=== PATIENT | male | born 1970 | race Caucasian/White ===

== ENCOUNTER 2016-04-28 09:37 | Emergency (ER) | payer BC ==
[~2016-04-28] VITALS: Ht 185.4 cm; Wt 170.0 kg
[~2016-04-28 09:37] MED LIST: BUSP5 PO; HYDR-2768 PO; LOSA100T PO
[2016-04-28 09:39] VITALS: BP 182/99; PULSE 89; RESP 17; TEMP 98.1; O2SAT 97
[2016-04-28 10:35] LABS: AUTOMATED NEUTROPHIL # 5.2 TH/MM3 (1.8-7.7); BASOPHIL % 0.6 % (0.0-2.0); EOSINOPHIL # 0.2 TH/MM3 (0-0.4); HEMO FLAGS DIFF FINAL; LYMPH % 23.3 % (9.0-44.0); LYMPHOCYTE # 1.8 TH/MM3 (1.0-4.8); MEAN CELL VOLUME 87.6 FL (80.0-100.0); MEAN CORPUSCULAR HEMOGLOBIN 29.1 PG (27.0-34.0); MEAN CORPUSCULAR HGB CONC 33.2 % (32.0-36.0); MONO % 7.4 % (0.0-8.0); NEUT % 66.7 % (16.0-70.0); PLATELET COUNT 219 TH/MM3 (150-450); RED BLOOD COUNT 5.02 MIL/MM3 (4.50-5.90); RED CELL DISTRIBUTION WIDTH 13.2 % (11.6-17.2); WHITE BLOOD COUNT 7.8 TH/MM3 (4.0-11.0)
[2016-04-28 10:59] LABS: ANION GAP 8 MEQ/L (5-15); AST (GOT) 17 U/L (15-37); BICARBONATE 26.4 MEQ/L (21.0-32.0); BLOOD UREA NITROGEN 17 MG/DL (7-18); CHLORIDE 105 MEQ/L (98-107); GLOMERULAR FILTRATION RATE 93 ML/MIN (>89); POTASSIUM 3.8 MEQ/L (3.5-5.1); SODIUM (NA) 139 MEQ/L (136-145)
[2016-04-28 11:03] LABS: ALKALINE PHOSPHATASE 65 U/L (45-117); ALT (GPT) 41 U/L (12-78); TOTAL BILIRUBIN ADULT 0.5 MG/DL (0.2-1.0)
[2016-04-28] MEDS ORDERED: LOSA100T PO (11:49)
[2016-04-28] MEDS ORDERED: HYDR25TA5 PO (11:49)
[2016-04-28] MEDS ORDERED: BUSP5TAB PO (11:49)
[2016-04-28] MEDS ORDERED: MECLIZINE HCL 25 MG TAB PO ONE (12:00)
--- NOTE | 2016-04-28 12:20 | PD ---
HPI Chief Complaint: Syncope/Near-Syncope Time Seen by Provider: 12:16 Travel History International Travel<30 days: No Contact w/Intl Traveler<30days: No Traveled to known affect area: No History of Present Illness HPI 45-year-old male that presents to the ED for evaluation of dizziness. Patient reports that since yesterday around 11:00 he's been feeling dizzy. Per patient he was in his kitchen getting some water and he felt dizzy as if he was given a passout. Per patient he was severe at that time. Per patient he was able to lay down and sit down and he did seem to improve his symptoms. Per patient he states that it feels like his been out of the lightheaded as well as the room spinning but he denies any actual chest pain or shortness of breath. He denies any actual syncopal episode. He denies any bleeding. He states that has a history of hypertension and obesity but no diabetes. Per patient he is very active physically as he is trying to lose weight. He denies any recent sudden lost weight. He states that he has no chest pain or palpitations. No history of heart disease. No allergies to medication. He did took some Dramamine to help with the symptoms and he did seem to help. Per patient she got concerned today because he started having more episodes only when he stands up. Otherwise he is doing okay. He has no allergies to medication. Per patient his had similar presentation a week ago and she got better. States that about 7 years ago he himself was diagnosed with vertigo but that went away. PFSH Past Medical History Hx Anticoagulant Therapy: No Anxiety: Yes Cardiovascular Problems: No High Cholesterol: Yes Chemotherapy: No Cerebrovascular Accident: No Diabetes: Yes (boderline) Patient Takes Glucophage: No Hypertension: Yes Respiratory: No Past Surgical History Surgical History: No Previous Surgery Social History Alcohol Use: Yes (OCCASIONALLY) Tobacco Use: No Substance Use: No Allergies-Medications (Allergen,Severity, Reaction): Coded Allergies: No Known Allergies (Unverified , 01/31/15) Reported Meds & Prescriptions Reported Meds & Active Scripts Active Meclizine (Meclizine HCl) 25 Mg Tab 25 Mg PO TID PRN Reported Buspirone (Buspirone HCl) 5 Mg Tab 5 Mg PO BID Hydrochlorothiazide 25 Mg Tab 25 Mg PO DAILY Losartan (Losartan Potassium) 100 Mg Tab 100 Mg PO DAILY Review of Systems Except as stated in HPI: all other systems reviewed are Neg Physical Exam Narrative GENERAL: SKIN: Warm and dry. HEAD: Atraumatic. Normocephalic. EYES: Pupils equal and round 4 mm reactive to light and accommodation. No scleral icterus. No injection or drainage. ENT: No nasal bleeding or discharge. Mucous membranes pink and moist. Tongue is midline. No uvula deviation. TMs are clear with no sign of infection or perforation. No mastoid tenderness. NECK: Trachea midline. No JVD. CARDIOVASCULAR: Regular rate and rhythm. No murmurs, S3, S4. RESPIRATORY: No accessory muscle use. Clear to auscultation. Breath sounds equal bilaterally. GASTROINTESTINAL: Abdomen soft, non-tender, nondistended. Hepatic and splenic margins not palpable. MUSCULOSKELETAL: Extremities without clubbing, cyanosis, or edema. No obvious deformities. Full range of motion of the upper and lower extremities bilaterally. 2+ pulses bilaterally. NEUROLOGICAL: Awake and alert. No obvious cranial nerve deficits. Motor grossly within normal limits. Five out of 5 muscle strength in the arms and legs. Normal speech. PSYCHIATRIC: Appropriate mood and affect; insight and judgment normal. Data Data Last Documented VS Vital Signs Date Time Temp Pulse Resp B/P Pulse Ox O2 Delivery O2 Flow Rate FiO2 04/28/16 12:43 79 16 131/63 93 18 138/67 84 18 143/70 04/28/16 09:39 98.1 97 Orders Electrocardiogram (04/28/16 09:40) Complete Blood Count With Diff (04/28/16 09:40) Comprehensive Metabolic Panel (04/28/16 09:40) Troponin I (04/28/16 11:46) Chest, Single Ap (04/28/16 11:46) Ct Brain W/O Iv Contrast(Rout) (04/28/16 11:46) Iv Access Insert/Monitor (04/28/16 11:46) Ecg Monitoring (04/28/16 11:46) Oximetry (04/28/16 11:46) Orthostatic Vital Signs (04/28/16 11:46) Meclizine (Antivert) (04/28/16 12:00) Labs Laboratory Tests Test 04/28/16 04/28/16 10:10 12:05 White Blood Count 7.8 TH/MM3 Red Blood Count 5.02 MIL/MM3 Hemoglobin 14.6 GM/DL Hematocrit 44.0 % Mean Corpuscular Volume 87.6 FL Mean Corpuscular Hemoglobin 29.1 PG Mean Corpuscular Hemoglobin 33.2 % Concent Red Cell Distribution Width 13.2 % Platelet Count 219 TH/MM3 Mean Platelet Volume 9.7 FL Neutrophils (%) (Auto) 66.7 % Lymphocytes (%) (Auto) 23.3 % Monocytes (%) (Auto) 7.4 % Eosinophils (%) (Auto) 2.0 % Basophils (%) (Auto) 0.6 % Neutrophils # (Auto) 5.2 TH/MM3 Lymphocytes # (Auto) 1.8 TH/MM3 Monocytes # (Auto) 0.6 TH/MM3 Eosinophils # (Auto) 0.2 TH/MM3 Basophils # (Auto) 0.0 TH/MM3 CBC Comment DIFF FINAL Differential Comment Sodium Level 139 MEQ/L Potassium Level 3.8 MEQ/L Chloride Level 105 MEQ/L Carbon Dioxide Level 26.4 MEQ/L Anion Gap 8 MEQ/L Blood Urea Nitrogen 17 MG/DL Creatinine 0.88 MG/DL Estimat Glomerular Filtration 93 ML/MIN Rate Random Glucose 106 MG/DL Calcium Level 8.7 MG/DL Total Bilirubin 0.5 MG/DL Aspartate Amino Transf 17 U/L (AST/SGOT) Alanine Aminotransferase 41 U/L (ALT/SGPT) Alkaline Phosphatase 65 U/L Total Protein 7.7 GM/DL Albumin 3.8 GM/DL Troponin I LESS THAN 0.02 NG/ML MDM Medical Decision Making Medical Screen Exam Complete: Yes Emergency Medical Condition: Yes Medical Record Reviewed: Yes Interpretation(s) CBC & BMP Diagram 04/28/16 10:10 LFTS WNL troponin negative EKG shows sinus rhythm with no sign of acute ischemia or arrhythmia. RBBB noted. Read by me and attending. Last Impressions Head CT 04/28/16 1146 Signed Impressions: Service Date/Time: Thursday, April 28, 2016 12:12 - CONCLUSION: No acute disease. Pepe Anderson MD FACR Checks x-rays show no sign of acute disease. Differential Diagnosis Syncope versus presyncope versus vertigo versus dizziness versus orthostatic hypotension versus normal exam versus otitis media versus otitis externa Narrative Course 45-year-old male that presents to the ED for evaluation of dizziness. Patient was properly examined and was found to have signs and symptoms consistent appears to be likely vertigo from symptom description. Labs and imaging will be done secondary to his age to rule out any sign of acute cardiac disease as well as brain bleed or other causes of severe illness. Patient is agreeable to this plan. Labs and imaging showed no sign of acute disease. Case was discussed in my attending Dr. Sabillon who agrees with plan. From history and physical this appears to be positional vertigo. Only when patient stands up he has to symptoms. Orthostatics are negative. EKG and labs are essentially reassuring at this time. I do not see any any sign of acute cardiac or CVA. He is neurovascularly intact. My recommendation at this time is to try meclizine. Patient was told as to things to look for in case of emergency and to come back. He agrees and understands. Patient was told that if symptoms do not improve in the next 2 days he should get rechecked. See ED worsening symptoms. Follow with PCP. Diagnosis Primary Impression: Vertigo Patient Instructions: General Instructions Departure Forms: Tests/Procedures, Work Release Enter return to work date: May 01, 2016 Additional Instructions: Take medication as prescribed. Follow with PCP. Rest as needed. See ED worsening symptoms or no improvement at all in the next 48 hours. Med/Other Pt SpecificInfo: Prescription(s) given Scripts Meclizine 25 Mg Tab25 Mg PO TID PRN (VERTIGO) #20 TAB Ref 0 Prov:Bria Sabillon MD 04/28/16 Disposition: 01 DISCHARGE HOME Condition: Stable Justin Prince Apr 28, 2016 12:20
--- NOTE | 2016-04-28 12:36 | RADRPT ---
EXAM DATE/TIME: 04/28/2016 12:12 [facility] COMPARISON: No previous studies available for comparison. INDICATIONS : Near syncopal episode last night. Complains of dizziness today. RADIATION DOSE: 47.01 CTDIvol (mGy) MEDICAL HISTORY : Hypertension. SURGICAL HISTORY : None. ENCOUNTER: Initial ACUITY: 1 day PAIN SCALE: 0/10 LOCATION: cranial TECHNIQUE: Multiple contiguous axial images were obtained of the head. Using automated exposure control and adj ustment of the mA and/or kV according to patient size, radiation dose was kept as low as reasonably a chievable to obtain optimal diagnostic quality images. FINDINGS: CEREBRUM: The ventricles are normal for age. No evidence of midline shift, mass lesion, hemorrhage or acute in farction. No extra-axial fluid collections are seen. POSTERIOR FOSSA: The cerebellum and brainstem are intact. The 4th ventricle is midline. The cerebellopontine angle i s unremarkable. EXTRACRANIAL: The visualized portion of the orbits is intact. SKULL: The calvaria is intact. No evidence of skull fracture. CONCLUSION: No acute disease. Pepe Anderson MD FACR on April 28, 2016 at 12:34 Board Certified Radiologist. This report was verified electronically.
[2016-04-28 12:43] VITALS: BP_SYST 131; BP_SYST 138; BP_SYST 143; BP_DIAS 63; BP_DIAS 67; BP_DIAS 70; RESP 16; RESP 18
[2016-04-28] MEDS ORDERED: MECL-62 PO (13:14)
--- NOTE | 2016-04-28 13:25 | RADRPT ---
EXAM DATE/TIME: 04/28/2016 12:37 [facility] COMPARISON: No previous studies available for comparison. INDICATIONS : Syncope. nausea and dizziness. MEDICAL HISTORY : None. SURGICAL HISTORY : None. ENCOUNTER: Initial ACUITY: 2 days PAIN SCORE: 0/10 LOCATION: Bilateral chest FINDINGS: A single view of the chest demonstrates the lungs to be symmetrically aerated without evidence of mas s, infiltrate or effusion. The cardiomediastinal contours are unremarkable. Osseous structures are intact with some degenerative spurring of the dorsal spine. CONCLUSION: No acute cardiopulmonary process. Дмитрий Davenport MD on April 28, 2016 at 13:23 Board Certified Radiologist. This report was verified electronically.
--- NOTE | 2016-04-28 22:34 | EKG ---
Date Performed: 04/28/2016 Time Performed: 10:04:23 PTAGE: 45 years EKG: Sinus rhythm RIGHT BUNDLE BRANCH BLOCK ABNORMAL ECG NO PREVIOUS TRACING DOCTOR: Kory Aquino Interpretating Date/Time 04/28/2016 22:33:27
== END 2016-04-28 13:49 | disposition home or self-care (01) ==
LOC: NEPC 09:37
DX: R42 Dizziness and giddiness (principal); E78.00 Pure hypercholesterolemia, unspecified; I10 Essential (primary) hypertension
CPT/HCPCS: 70450; 71010; 80053; 84484; 85025; 93005

== ENCOUNTER 2017-09-28 13:38 | Observation (INO) | payer BC ==
[~2017-09-28] VITALS: Ht 182.9 cm; Wt 156.0 kg
[~2017-09-28 13:38] MED LIST changes: -BUSP5 PO; +BUSP5TAB PO; -HYDR-2768 PO; +HYDR25TA5 PO; +MECL-62 PO
[2017-09-28 13:44] VITALS: BP 171/86; PULSE 108; RESP 16; TEMP 97.4; O2SAT 96
[2017-09-28 14:25] LABS: AUTOMATED NEUTROPHIL # 4.8 TH/MM3 (1.8-7.7); BASOPHIL % 0.5 % (0.0-2.0); EOSINOPHIL # 0.1 TH/MM3 (0-0.4); HEMATOCRIT 45.4 % (39.0-51.0); HEMOGLOBIN 15.8 GM/DL (13.0-17.0); LYMPHOCYTE # 1.2 TH/MM3 (1.0-4.8); MEAN CELL VOLUME 86.3 FL (80.0-100.0); MEAN CORPUSCULAR HEMOGLOBIN 29.9 PG (27.0-34.0); MEAN CORPUSCULAR HGB CONC 34.7 % (32.0-36.0); MEAN PLATELET VOLUME 9.4 FL (7.0-11.0); MONO % 8.7 % (0.0-8.0); MONOCYTE # 0.6 TH/MM3 (0-0.9); NEUT % 71.8 % (16.0-70.0); PLATELET COUNT 221 TH/MM3 (150-450); RED BLOOD COUNT 5.26 MIL/MM3 (4.50-5.90); RED CELL DISTRIBUTION WIDTH 13.1 % (11.6-17.2); WHITE BLOOD COUNT 6.7 TH/MM3 (4.0-11.0)
--- NOTE | 2017-09-28 14:38 | RADRPT ---
EXAM DATE: 09/28/2017 2:22 PM EDT AGE/SEX: 47 years / Male INDICATIONS: Left arm pain, abnormal ekg CLINICAL DATA: This is the patient's initial encounter. Patient reports that signs and symptoms have been present for 2 days and indicates a pain score of 5/10. MEDICAL/SURGICAL HISTORY: None. None. COMPARISON: No prior exams available for comparison. FINDINGS: PA and lateral views of the chest demonstrate the lungs to be symmetrically aerated without evidence of mass, infiltrate or effusion. The cardiomediastinal contours are unremarkable. Osseous structures are intact. CONCLUSION: No acute cardiopulmonary process. Electronically signed by: Les Del Cid MD 09/28/2017 2:37 PM EDT
[2017-09-28 14:44] LABS: BICARBONATE 25.3 MEQ/L (21.0-32.0); BLOOD UREA NITROGEN 19 MG/DL (7-18); CALCIUM 9.5 MG/DL (8.5-10.1); CHLORIDE 107 MEQ/L (98-107); CREATININE 1.01 MG/DL (0.60-1.30); GLOMERULAR FILTRATION RATE 79 ML/MIN (>89); GLUCOSE,RANDOM 104 MG/DL (74-106); SODIUM (NA) 140 MEQ/L (136-145)
[2017-09-28 14:48] LABS: TROPONIN I LESS THAN 0.02 NG/ML (0.02-0.05)
[2017-09-28] MEDS ORDERED: NALT1TAB3 PO (14:55)
--- NOTE | 2017-09-28 15:04 | PD ---
HPI Chief Complaint: Chest Pain Time Seen by Provider: 14:56 Travel History International Travel<30 days: No Contact w/Intl Traveler<30days: No Traveled to known affect area: No History of Present Illness HPI 47-year-old male with history of hypertension, diabetes, sleep apnea, presents emergency department for evaluation. Patient states 3 days [place] When he got up he developed a pain under his left scapula. This resolved on its own. Patient had no preceding injury. There is no chest tightness or shortness of breath associated with it. The next day, the patient developed a left upper extremity tingling. He states this persisted nearly throughout the day although it did wax and wane. Yesterday he had no symptoms. Today however while at work he had 2 episodes of left upper extremity numbness. There was no pain associated with it. Patient denies any shortness of breath, nausea, or lightheaded sensation. Patient has no significant cardiac history. He went to the urgent care. They did an EKG there and advised to come to the emergency department. Patient is having no symptoms at this time. PFSH Past Medical History Hx Anticoagulant Therapy: No Anxiety: Yes Cardiovascular Problems: No High Cholesterol: Yes Chemotherapy: No Cerebrovascular Accident: No Diabetes: Yes (boderline) Patient Takes Glucophage: No Hypertension: Yes Respiratory: No Tetanus Vaccination: Unknown Influenza Vaccination: Yes Past Surgical History Surgical History: No Previous Surgery Social History Alcohol Use: Yes (OCCASIONALLY) Tobacco Use: No Substance Use: No Allergies-Medications (Allergen,Severity, Reaction): Coded Allergies: No Known Allergies (Unverified Adverse Reaction, Unknown, 09/28/17) Reported Meds & Prescriptions Reported Meds & Active Scripts Active Reported Contrave ER 12 HR (Naltrexone HCl-Bupropion ER 12 HR) 8-90 Mg Tab 1 Tab PO TID Buspirone (Buspirone HCl) 5 Mg Tab 5 Mg PO DAILY Hydrochlorothiazide 25 Mg Tab 25 Mg PO DAILY Losartan (Losartan Potassium) 100 Mg Tab 100 Mg PO DAILY Review of Systems Except as stated in HPI: all other systems reviewed are Neg Physical Exam Narrative GENERAL: Obese male patient, appears nontoxic and without distress. SKIN: Focused skin assessment warm/dry. HEAD: Atraumatic. Normocephalic. EYES: Pupils equal and round. No scleral icterus. No injection or drainage. ENT: No nasal bleeding or discharge. Mucous membranes pink and moist. NECK: Trachea midline. No JVD. CARDIOVASCULAR: Regular rate and rhythm. No murmur appreciated. RESPIRATORY: No accessory muscle use. Diminished, likely due to girth to auscultation. Breath sounds equal bilaterally. GASTROINTESTINAL: Rotund, soft, nondistended. No rebound tenderness or guarding. Hepatic and splenic margins not palpable. MUSCULOSKELETAL: No obvious deformities. No clubbing. No cyanosis. No edema. NEUROLOGICAL: Awake and alert. No obvious cranial nerve deficits. Motor grossly within normal limits. Normal speech. PSYCHIATRIC: Appropriate mood and affect; insight and judgment normal. Data Data Last Documented VS Vital Signs Date Time Temp Pulse Resp B/P (MAP) Pulse Ox O2 Delivery O2 Flow Rate FiO2 09/28/17 15:17 (114) Room Air 09/28/17 15:17 96 09/28/17 13:44 97.4 108 16 Orders Orders Electrocardiogram (09/28/17 14:00) Complete Blood Count With Diff (09/28/17 14:00) Basic Metabolic Panel (Bmp) (09/28/17 14:00) Ckmb (Isoenzyme) Profile (09/28/17 14:00) Troponin I (09/28/17 14:00) Iv Access Insert/Monitor (09/28/17 14:00) Ecg Monitoring (09/28/17 14:00) Oxygen Administration (09/28/17 14:00) Oximetry (09/28/17 14:00) Chest, Pa & Lat (09/28/17 14:00) Lipase (09/28/17 15:15) Labs Laboratory Tests Test 09/28/17 14:00 White Blood Count 6.7 TH/MM3 Red Blood Count 5.26 MIL/MM3 Hemoglobin 15.8 GM/DL Hematocrit 45.4 % Mean Corpuscular Volume 86.3 FL Mean Corpuscular Hemoglobin 29.9 PG Mean Corpuscular Hemoglobin Concent 34.7 % Red Cell Distribution Width 13.1 % Platelet Count 221 TH/MM3 Mean Platelet Volume 9.4 FL Neutrophils (%) (Auto) 71.8 % Lymphocytes (%) (Auto) 18.0 % Monocytes (%) (Auto) 8.7 % Eosinophils (%) (Auto) 1.0 % Basophils (%) (Auto) 0.5 % Neutrophils # (Auto) 4.8 TH/MM3 Lymphocytes # (Auto) 1.2 TH/MM3 Monocytes # (Auto) 0.6 TH/MM3 Eosinophils # (Auto) 0.1 TH/MM3 Basophils # (Auto) 0.0 TH/MM3 CBC Comment DIFF FINAL Differential Comment Blood Urea Nitrogen 19 MG/DL Creatinine 1.01 MG/DL Random Glucose 104 MG/DL Calcium Level 9.5 MG/DL Sodium Level 140 MEQ/L Potassium Level 3.8 MEQ/L Chloride Level 107 MEQ/L Carbon Dioxide Level 25.3 MEQ/L Anion Gap 8 MEQ/L Estimat Glomerular Filtration Rate 79 ML/MIN Total Creatine Kinase 95 U/L Troponin I LESS THAN 0.02 NG/ML MDM Medical Decision Making Medical Screen Exam Complete: Yes Emergency Medical Condition: Yes Medical Record Reviewed: Yes Differential Diagnosis Atypical chest pain versus pleuritic pain versus costochondritis versus anxiety versus radiculopathy Narrative Course 47-year-old male presents emergency department for evaluation. Patient appears well and without distress. Patient symptoms have been intermittent for the last 3 days. They have included a left scapular pain and left upper extremity tingling. Patient is not currently having the symptoms. EKG was repeated here and reviewed by my attending physician. Chest pain workup is initiated. Laboratory Tests Test 09/28/17 14:00 White Blood Count 6.7 TH/MM3 Red Blood Count 5.26 MIL/MM3 Hemoglobin 15.8 GM/DL Hematocrit 45.4 % Mean Corpuscular Volume 86.3 FL Mean Corpuscular Hemoglobin 29.9 PG Mean Corpuscular Hemoglobin Concent 34.7 % Red Cell Distribution Width 13.1 % Platelet Count 221 TH/MM3 Mean Platelet Volume 9.4 FL Neutrophils (%) (Auto) 71.8 % Lymphocytes (%) (Auto) 18.0 % Monocytes (%) (Auto) 8.7 % Eosinophils (%) (Auto) 1.0 % Basophils (%) (Auto) 0.5 % Neutrophils # (Auto) 4.8 TH/MM3 Lymphocytes # (Auto) 1.2 TH/MM3 Monocytes # (Auto) 0.6 TH/MM3 Eosinophils # (Auto) 0.1 TH/MM3 Basophils # (Auto) 0.0 TH/MM3 CBC Comment DIFF FINAL Differential Comment Blood Urea Nitrogen 19 MG/DL Creatinine 1.01 MG/DL Random Glucose 104 MG/DL Calcium Level 9.5 MG/DL Sodium Level 140 MEQ/L Potassium Level 3.8 MEQ/L Chloride Level 107 MEQ/L Carbon Dioxide Level 25.3 MEQ/L Anion Gap 8 MEQ/L Estimat Glomerular Filtration Rate 79 ML/MIN Total Creatine Kinase 95 U/L Troponin I LESS THAN 0.02 NG/ML Last Impressions Chest X-Ray 09/28/17 1400 Signed Impressions: CONCLUSION: No acute cardiopulmonary process. Imaging studies and lab work are reviewed. They are all reassuring. I have reviewed them with the patient. Patient will be admitted to the chest pain center for serial troponins and observation. Plan is discussed with him. He is in agreement with this plan of care. Diagnosis Primary Impression: Atypical chest pain Admitting Information Admitting Physician Requests: Observation Condition: Stable Netta Freed Sep 28, 2017 15:04
[2017-09-28] MEDS ORDERED: NITROGLYCERIN 0.4 MG SL 25 TABS/BTL SL PRN (16:15)
[2017-09-28] MEDS ORDERED: ACETAMINOPHEN 500 MG CPLT PO PRN (16:15)
[2017-09-28] MEDS ORDERED: SODIUM CHLORIDE 0.9% FLUSH 10 ML FLUSH IV FLUSH PRN (16:15)
[2017-09-28] MEDS ORDERED: ALPRAZolam 0.5 MG TAB PO PRN (16:45)
--- NOTE | 2017-09-28 16:48 | HHI.HP ---
HPI Primary Care Physician Ayaz Sepulveda MD Chief Complaint Arm pain History of Present Illness 47-year-old male with history of hypertension and morbidly obese presents emergency room for further evaluation of left arm pain. Sunday while visiting the beach he fell asleep, upon awakening left shoulder scapula area extremely painful. Duration 2 hours. Sunday left upper arm experienced intermittent throbbing, duration 3 hours. pain-free. Sunday morning left arm pain returned. Went to urgent care. EKG completed. He was directed to the ER for further evaluation. Told he had a heart attack in the past. Denies ever having chest pain, tightness, or pressure. No associated symptoms of nausea, vomiting, dyspnea, or diaphoresis. No known coronary artery disease. He is extremely anxious about admission and possibility of having a heart attack. Left arm pain completely gone. Denies numbness or tingling of extremity. Pain not reproduced with palpation or movement. Review of Systems General: No fatigue, weakness, fever, chills, or recent illness. Has been his general state of health. Currently working on weight loss, lost 31 pounds. HEENT: No DE, no vision changes, no nasal congestion or drainage, no dysphasia CV: Never experienced chest pain or pressure. RESP: No SOB, cough, wheeze, or history of asthma GI: No nausea, vomiting, bowel changes, diarrhea, constipation, pain, distention , melena, blood in the stool. : No dysuria, urgency, frequency EXT: No lower leg edema, no paraesthesias MS: As stated above. No current discomfort. No change in ROM NEURO: No change in memory, dizziness, difficulty with balance, LOC, motor/ sensory deficits PSYCH: History of anxiety. no depression or suicidal ideation SKIN: No rashes, no concerning lesions Past Family Social History Allergies: Coded Allergies: No Known Allergies (Unverified Allergy, Unknown, 09/28/17) Past Medical History Hypertension Past Surgical History None Reported Medications Reported Meds & Active Scripts Active Reported Contrave ER 12 HR (Naltrexone HCl-Bupropion ER 12 HR) 8-90 Mg Tab 1 Tab PO TID Buspirone (Buspirone HCl) 5 Mg Tab 5 Mg PO DAILY Hydrochlorothiazide 25 Mg Tab 25 Mg PO DAILY Losartan (Losartan Potassium) 100 Mg Tab 100 Mg PO DAILY Active Ordered Medications Current Medications Medications (Trade) Dose Ordered Sig/Michelet Route Start Time Stop Time Status Last Admin (NS Flush) 2 ml UNSCH PRN IV FLUSH 09/28/17 16:15 (NS Flush) 2 ml BID IV FLUSH 09/28/17 21:00 (Tylenol) 500 mg Q4H PRN PO 09/28/17 16:15 (Nitrostat Sl) 0.4 mg Q5M PRN SL 09/28/17 16:15 (Aspirin) 325 mg DAILY PO 09/29/17 09:00 Family History Noncontributory for early onset cardiovascular disease Social History Known hypertension. No known coronary artery disease, diabetes, or hyperlipidemia. Lifelong non-smoker. Occasional alcohol use. . Past cardiac testing Remote exercise stress test 10 years ago reported to be normal. Physical Exam Vital Signs Vital Signs Date Time Temp Pulse Resp B/P (MAP) Pulse Ox O2 Delivery O2 Flow Rate FiO2 09/28/17 15:17 (114) Room Air 09/28/17 15:17 96 Room Air 09/28/17 13:44 97.4 108 16 171/86 (114) 96 Physical Exam GENERAL: Alert WN, WD, NAD, pleasant, morbidly obese, male who is obviously anxious, quite talkative. HEAD: NC, AT CV: RRR, without murmur, rub, gallop, no JVD, S1-S2 no S3-S4. RESP: Clear lungs throughout bilateral, no crackles, wheeze, rhonchi, symmetrical chest rise, nonlabored, able to speak in full sentences ABD: Soft, NT, ND, no masses, positive bowel tones EXT: Pulses +2x4, no dependent edema MS: Normal tone x4 extremities, nontender, no obvious deformities, full range of motion, left arm and shoulder nontender with palpation, no reproducible pain with passive range of motion NEURO: CN II through CN XII grossly intact, motor strength 5/5 PSYCH: A+O x3, pleasant affect, talkative, anxious mood, appropriate insight and judgment SKIN: Normal turgor, normal texture, no lesions, no rashes, brisk cap refill, even hair distribution Laboratory Laboratory Tests Test 09/28/17 14:00 White Blood Count 6.7 Red Blood Count 5.26 Hemoglobin 15.8 Hematocrit 45.4 Mean Corpuscular Volume 86.3 Mean Corpuscular Hemoglobin 29.9 Mean Corpuscular Hemoglobin Concent 34.7 Red Cell Distribution Width 13.1 Platelet Count 221 Mean Platelet Volume 9.4 Neutrophils (%) (Auto) 71.8 Lymphocytes (%) (Auto) 18.0 Monocytes (%) (Auto) 8.7 Eosinophils (%) (Auto) 1.0 Basophils (%) (Auto) 0.5 Neutrophils # (Auto) 4.8 Lymphocytes # (Auto) 1.2 Monocytes # (Auto) 0.6 Eosinophils # (Auto) 0.1 Basophils # (Auto) 0.0 CBC Comment DIFF FINAL Differential Comment Blood Urea Nitrogen 19 Creatinine 1.01 Random Glucose 104 Calcium Level 9.5 Sodium Level 140 Potassium Level 3.8 Chloride Level 107 Carbon Dioxide Level 25.3 Anion Gap 8 Estimat Glomerular Filtration Rate 79 Total Creatine Kinase 95 Troponin I LESS THAN 0.02 Result Diagram: 09/28/17 1400 09/28/17 1400 Imaging Last 48 hours Impressions Chest X-Ray 09/28/17 1400 Signed Impressions: CONCLUSION: No acute cardiopulmonary process. Course EKG Normal sinus rhythm, right bundle branch block Caprini VTE Risk Assessment Caprini VTE Risk Assessment: No/Low Risk (score <= 1) Caprini Risk Assessment Model Point Value = 1 Point Value = 2 Point Value = 3 Point Value = 5 Age 41-60 Minor surgery BMI > 25 kg/m2 Swollen legs Varicose veins or History of unexplained or recurrent spontaneous Oral contraceptives or hormone replacement Sepsis (< 1 month) Serious lung disease, including pneumonia (< 1 month) Abnormal pulmonary function Acute myocardial infarction Congestive heart failure (< 1 month) History of inflammatory bowel disease Medical patient at bed rest Age 61-74 Arthroscopic surgery Major open surgery (> 45 min) Laparoscopic surgery (> 45 min) Malignancy Confined to bed (> 72 hours) Immobilizing plaster cast Central venous access Age >= 75 History of VTE Family history of VTE Factor V Leiden Prothrombin [id number] Lupus anticoagulant Anticardiolipin antibodies Elevated serum homocysteine Heparin-induced thrombocytopenia Other congenital or acquired thrombophilia Stroke (< 1 month) Elective arthroplasty Hip, pelvis, or leg fracture Acute spinal cord injury (< 1 month) Prophylaxis Regimen Total Risk Factor Score Risk Level Prophylaxis Regimen 0-1 Low Early ambulation 2 Moderate Order ONE of the following: *Sequential Compression Device (SCD) *Heparin 5000 units SQ BID 3-4 Higher Order ONE of the following medications: *Heparin 5000 units SQ TID *Enoxaparin/Lovenox 40 mg SQ daily (WT < 150 kg, CrCl > 30 mL/min) *Enoxaparin/Lovenox 30 mg SQ daily (WT < 150 kg, CrCl > 10-29 mL/min) *Enoxaparin/Lovenox 30 mg SQ BID (WT < 150 kg, CrCl > 30 mL/min) AND/OR *Sequential Compression Device (SCD) 5 or more Highest Order ONE of the following medications: *Heparin 5000 units SQ TID (Preferred with Epidurals) *Enoxaparin/Lovenox 40 mg SQ daily (WT < 150 kg, CrCl > 30 mL/min) *Enoxaparin/Lovenox 30 mg SQ daily (WT < 150 kg, CrCl > 10-29 mL/min) *Enoxaparin/Lovenox 30 mg SQ BID (WT < 150 kg, CrCl > 30 mL/min) AND *Sequential Compression Device (SCD) Assessment and Plan Assessment and Plan #1 Admitted to chest pain center. Continue ACS protocol initiated in ER. Monitor on telemetry overnight. Will be seen evaluated by Dr. Misael Little. Discussed likelihood of completing cardiac stress testing in a.m., due to risk factors of age and hypertension not due to presenting symptoms. Patient agreeable to plan of care and verbalizes understanding. #2 Hypertension-Continue losartan, discussed lifestyle modifications and applauded his efforts of weight loss. #3 Anxiety-continue buspirone, xanax 0.5mg Q6H prn for anxiety. Encouraged him to discuss his concern buspirone not controlling his anxiety. Encouraged daily exercise, eating a well-balanced diet, and getting at least 7-8 hours sleep nightly. Letty Patterson Sep 28, 2017 16:48
[2017-09-28 17:00] VITALS: BP 125/71
[2017-09-28 17:23] VITALS: BP 130/88; PULSE 68; RESP 20; TEMP 98.2; O2SAT 96
[2017-09-28 17:59] LABS: TROPONIN I LESS THAN 0.02 NG/ML (0.02-0.05)
[2017-09-28 19:42] VITALS: O2SAT 100
[2017-09-28] MEDS: SODIUM CHLORIDE 0.9% FLUSH 10 ML FLUSH IV FLUSH SCH (20:30)
[2017-09-28 20:33] VITALS: BP 119/75; PULSE 88; RESP 16; TEMP 98; O2SAT 96
[2017-09-28 21:11] LABS: TROPONIN I LESS THAN 0.02 NG/ML (0.02-0.05)
[2017-09-29 00:18] VITALS: BP 140/79; PULSE 72; RESP 16; TEMP 97.9; O2SAT 95
[2017-09-29 04:02] VITALS: BP 149/83; PULSE 82; RESP 16; TEMP 97.6; O2SAT 96
[2017-09-29 07:22] VITALS: BP 145/93; PULSE 67; RESP 20; TEMP 96.4; O2SAT 97
--- NOTE | 2017-09-29 08:31 | EKG ---
Date Performed: 09/28/2017 Time Performed: 20:26:53 PTAGE: 47 years EKG: Sinus rhythm RIGHT BUNDLE BRANCH BLOCK ABNORMAL ECG No change from prior PREVIOUS TRACING : 09/28/2017 16.57 DOCTOR: Misael Little Interpretating Date/Time 09/29/2017 08:31:11
--- NOTE | 2017-09-29 08:32 | EKG ---
Date Performed: 09/28/2017 Time Performed: 16:57:44 PTAGE: 47 years EKG: Sinus rhythm RIGHT BUNDLE BRANCH BLOCK ABNORMAL ECG No significant change PREVIOUS TRACING : 09/28/2017 14.02 DOCTOR: Misael Little Interpretating Date/Time 09/29/2017 08:31:35
--- NOTE | 2017-09-29 08:32 | EKG ---
Date Performed: 09/28/2017 Time Performed: 14:02:50 PTAGE: 47 years EKG: Sinus rhythm RIGHT BUNDLE BRANCH BLOCK ABNORMAL ECG No significant change PREVIOUS TRACING : 04/28/2016 10.04 DOCTOR: Misael Little Interpretating Date/Time 09/29/2017 08:32:12
[2017-09-29] MEDS ORDERED: LOSARTAN 50 MG TAB PO SCH (09:00)
[2017-09-29] MEDS ORDERED: busPIRone HCL 5 MG TAB PO SCH (09:00)
[2017-09-29] MEDS ORDERED: ASPIRIN 325 MG TAB PO SCH (09:00)
[2017-09-29] MEDS ORDERED: HYDROCHLOROTHIAZIDE 25 MG TAB PO SCH (09:00)
--- NOTE | 2017-09-29 09:20 | PD.CARD.PN ---
Subjective Subjective Remarks Pleasant but extremely anxious gentleman developed left upper arm pain and some left rib pain after lying on the beach for some time. The patient is extremely obese but has been working on weight loss for some time now. He has known history of low back problems but no known upper spinal problems. His current problem sounds very musculoskeletal but he does have risk factors for coronary artery disease needs to be evaluated. He was seen in urgent care center where he was told that he had had a heart attack and was sent to the ED. This caused a great deal of anxiety. Review of his EKG shows a right bundle branch block but no evidence of an SD past or present. The patient was seen and examined personally, discussed with the nurse practitioner, and a plane developed since he has already ruled out for ACS. Objective Medications Current Medications Medications (Trade) Dose Ordered Sig/Michelet Route Start Time Stop Time Status Last Admin (NS Flush) 2 ml UNSCH PRN IV FLUSH 09/28/17 16:15 (NS Flush) 2 ml BID IV FLUSH 09/28/17 21:00 09/28/17 20:30 (Tylenol) 500 mg Q4H PRN PO 09/28/17 16:15 09/28/17 20:31 (Nitrostat Sl) 0.4 mg Q5M PRN SL 09/28/17 16:15 (Aspirin) 325 mg DAILY PO 09/29/17 09:00 (Xanax) 0.5 mg Q6H PRN PO 09/28/17 16:45 (Buspar) 5 mg DAILY PO 09/29/17 09:00 (Hydrodiuril) 25 mg DAILY PO 09/29/17 09:00 (Cozaar) 100 mg DAILY PO 09/29/17 09:00 Vital Signs / I&O Vital Signs Date Time Temp Pulse Resp B/P (MAP) Pulse Ox O2 Delivery O2 Flow Rate FiO2 09/29/17 07:22 96.4 67 20 145/93 (110) 97 09/29/17 04:02 97.6 82 16 149/83 (105) 96 09/29/17 00:18 97.9 72 16 140/79 (99) 95 09/28/17 20:33 98.0 88 16 119/75 (90) 96 09/28/17 19:42 100 21 09/28/17 17:23 98.2 68 20 130/88 (102) 96 09/28/17 17:00 81 18 125/71 (89) 96 21 09/28/17 15:17 (114) Room Air 09/28/17 15:17 96 Room Air 09/28/17 13:44 97.4 108 16 171/86 (114) 96 I/O 09/28/17 09/28/17 09/28/17 09/29/17 09/29/17 09/29/17 07:00 15:00 23:00 07:00 15:00 23:00 Intake Total 40 ml Balance 40 ml Intake Oral 40 ml Physical Exam Obese pleasant gentleman in no acute distress Neck supple no JVD masses nodes or bruits Chest diminished breath sounds due to his obesity but no rales wheezes or rhonchi Cardiovascular reveals a regular sinus rhythm with no gallops rubs or murmurs Abdomen is obese soft nontender no guarding or rebound Extremities no clubbing cyanosis or edema Laboratory Laboratory Tests Test 09/28/17 14:00 09/28/17 17:00 09/28/17 20:15 White Blood Count 6.7 TH/MM3 Red Blood Count 5.26 MIL/MM3 Hemoglobin 15.8 GM/DL Hematocrit 45.4 % Mean Corpuscular Volume 86.3 FL Mean Corpuscular Hemoglobin 29.9 PG Mean Corpuscular Hemoglobin Concent 34.7 % Red Cell Distribution Width 13.1 % Platelet Count 221 TH/MM3 Mean Platelet Volume 9.4 FL Neutrophils (%) (Auto) 71.8 % Lymphocytes (%) (Auto) 18.0 % Monocytes (%) (Auto) 8.7 % Eosinophils (%) (Auto) 1.0 % Basophils (%) (Auto) 0.5 % Neutrophils # (Auto) 4.8 TH/MM3 Lymphocytes # (Auto) 1.2 TH/MM3 Monocytes # (Auto) 0.6 TH/MM3 Eosinophils # (Auto) 0.1 TH/MM3 Basophils # (Auto) 0.0 TH/MM3 CBC Comment DIFF FINAL Differential Comment Blood Urea Nitrogen 19 MG/DL Creatinine 1.01 MG/DL Random Glucose 104 MG/DL Calcium Level 9.5 MG/DL Sodium Level 140 MEQ/L Potassium Level 3.8 MEQ/L Chloride Level 107 MEQ/L Carbon Dioxide Level 25.3 MEQ/L Anion Gap 8 MEQ/L Estimat Glomerular Filtration Rate 79 ML/MIN Total Creatine Kinase 95 U/L 90 U/L 104 U/L Troponin I LESS THAN 0.02 NG/ML LESS THAN 0.02 NG/ML LESS THAN 0.02 NG/ML Lipase 198 U/L Creatine Kinase MB LESS THAN 0.5 NG/ML Imaging Last 24 hours Impressions Chest X-Ray 09/28/17 1400 Signed Impressions: CONCLUSION: No acute cardiopulmonary process. Assessment and Plan Assessment and Plan Patient has already ruled out for ACS. Well aware of his need to continue to lose weight and make some changes in his lifestyle. He has a right bundle branch block and his EKG but no lateral ST-T changes. He is a candidate for exercise stress testing this will be carried out prior to discharge. He is followed by Dr. Reyes and will see him post discharge for further outpatient evaluation. Code Status Full code Discussed Condition With Talked with the patient about his current issues and need for appropriate follow -up. He was encouraged to continue weight reduction and lifestyle alteration. Misael Little MD Sep 29, 2017 09:20
[2017-09-29] MEDS: SODIUM CHLORIDE 0.9% FLUSH 10 ML FLUSH IV FLUSH SCH (09:23)
--- NOTE | 2017-09-29 10:17 | HHI.DCPOC ---
Discharge Care Plan Diagnosis: (1) Atypical chest pain (2) Left upper arm pain Goals to Promote Your Health * To prevent worsening of your condition and complications * To maintain your health at the optimal level Directions to Meet Your Goals Take your medications as prescribed Follow your dietary instruction Follow activity as directed Keep your appointments as scheduled Take your immunizations and boosters as scheduled If your symptoms worsen call your PCP, if no PCP go to Urgent Care Center or Emergency Room Smoking is Dangerous to Your Health. Avoid second hand smoke Call the 24-hour hour crisis hotline for domestic abuse at Ofelia Suresh Sep 29, 2017 10:17
[2017-09-29 11:30] VITALS: BP 145/93; PULSE 67; RESP 20; TEMP 96.4; O2SAT 97
--- NOTE | 2017-09-29 16:39 | TR ---
Date Performed: 09/29/2017 Time Performed: 09:34:47 DOCTOR: Misael Little DRUG LIST: CLINICAL HISTORY: REASON FOR TEST: ATYPICAL CHEST PAIN REASON FOR ENDING: OBSERVATION: CONCLUSION: Patient exercised using the Mariano protocol. No electrocardiographic changes were see n to suggest ischemia. Hemodynamic response to exercise was normal. No significant arrhythmia was pre sent. COMMENTS: This patient had a right bundle branch block but developed no additional diagnostic ST changes with exercise. He had a good exercise level with no symptoms. [place] to represent a low prob ability of significant ischemic heart disease as a cause of current presentation
== END 2017-09-29 11:23 | disposition home or self-care (01) ==
LOC: NEPC 13:38 → NEDA 15:44 → NEPFCDU 17:07
PROVIDERS: ADMIT Internal Medicine Interventional Cardiology; ATTEND Internal Medicine Interventional Cardiology
DX: R07.89 Other chest pain (principal); I10 Essential (primary) hypertension; F41.9 Anxiety disorder, unspecified; E11.9 Type 2 diabetes mellitus without complications; G47.30 Sleep apnea, unspecified; R20.2 Paresthesia of skin; E78.00 Pure hypercholesterolemia, unspecified; R94.31 Abnormal electrocardiogram [ECG] [EKG]; R07.81 Pleurodynia; M79.622 Pain in left upper arm; I45.10 Unspecified right bundle-branch block; E66.01 Morbid (severe) obesity due to excess calories
CPT/HCPCS: 71046; 80048; 82550; 82552; 83690; 84484; 85025; 93005; 93017; 99285; G0378